=== PATIENT | male | born 1990 | race Two or more races ===

== ENCOUNTER 2020-05-03 00:59 | Emergency (ER) | payer SELFPAY ==
[~2020-05-03] VITALS: Ht 170.2 cm; Wt 77.1 kg
[2020-05-03] MEDS ORDERED: ONDANSETRON HCL/PF 4 MG/2 ML VIAL ONE (01:07)
--- NOTE | 2020-05-03 01:08 | NUR ---
PT AAOX1, BIBRA 87 FOR OVER DOSE. PT WAS ARRIVED WHILE EMS BAGGING HIM. PT WAS GIVEN [employer]. PT IN THE E.D. WAS PLACED ON 2L NC. SAT 98%. PT ONLY ABLE TO PROVIDE NAME. PT GIVEN 1L NS AND 4MG OF ZOFRAN. IV LINE ESTABLISHED ON L FOOT 20G. VSS. AWAITING MD FOR EVAL AND ORDERS.
[2020-05-03] MEDS ORDERED: IV NS 0.9% 1,000 ML IV ONE (01:30)
[2020-05-03] MEDS ORDERED: ONDANSETRON HCL/PF 4 MG/2 ML VIAL IV ONE (01:30)
[2020-05-03 01:40] LABS: BASOPHILS # (AUTO) 0.1 /CMM (0.0-0.2); BASOPHILS % (AUTO) 0.8 % (0.0-2.0); EOSINOPHILS % (AUTO) 0.2 % (0.0-6.0); HEMATOCRIT 43 % (39-51); LYMPHOCYTES # (AUTO) 0.5 /CMM (0.8-4.8); LYMPHOCYTES % (AUTO) 4.3 % (20.0-44.0); MEAN CORPUSCULAR HGB CONC 33 g/dl (31.0-36.0); MEAN CORPUSCULAR VOLUME 89 fL (80-96); MONOCYTES # (AUTO) 0.5 /CMM (0.1-1.30); MONOCYTES % (AUTO) 4.6 % (2.0-12.0); NEUTROPHILS # (AUTO) 10.8 /CMM (1.8-8.9); NEUTROPHILS % (AUTO) 90.1 % (43.0-81.0); PLATELET COUNT (AUTO) 184 /CMM (150-450); RED BLOOD CELL COUNT(AUTO) 4.79 MIL/uL (4.5-6.0)
--- NOTE | 2020-05-03 01:48 | NUR ---
PT AAOX4. DOES NOT WANT TO PROVIDE HIS NAME. AWARE.
--- NOTE | 2020-05-03 01:50 | NUR ---
Patient does not wish to proceed with medical care recommended by Dr. Delong. Patient given information related to possible complications, up to and including , which could occur as a result of leaving the hospital at this time. Patient verbalizes understanding of risks involved due to leaving against medical advice. Patient has signed AMA form.
[2020-05-03 01:57] VITALS: BP 128/75
[2020-05-03 02:12] LABS: ALANINE AMINOTRANSFERASE 59 U/L (12-78); ALBUMIN 3.7 g/dL (3.4-5.0); ALCOHOL, BLOOD 147 mg/dL (0-0); ALKALINE PHOSPHATASE 74 U/L (46-116); ASPARTATE AMINOTRANSFERASE 54 U/L (15-37); BILIRUBIN,DIRECT 0.1 mg/dL (0.0-0.2); BILIRUBIN,TOTAL 0.3 mg/dL (0.2-1.0); CALCIUM, SERUM 7.2 mg/dL (8.5-10.1); CARBON DIOXIDE 19 mmol/L (21-32); CHLORIDE 107 mmol/L (98-107); CREATININE 1.5 mg/dL (0.6-1.3); GLUCOSE 254 mg/dL (74-106); POTASSIUM 3.2 mmol/L (3.5-5.1); SODIUM SERUM 143 mmol/L (136-145); TOTAL PROTEIN, SERUM 7.5 g/dL (6.4-8.2); UREA NITROGEN, BLOOD 11 mg/dL (7-18)
--- NOTE | 2020-05-03 02:22 | NUR ---
unable to discharge due to meditec
[2020-05-03 04:04] LABS: ACETAMINOPHEN < 2 ug/ml (10-30)
== END 2020-05-03 02:22 | disposition left against medical advice (07) ==
LOC: ER 01:03
DX: T51.8X1A Toxic effect of other alcohols, accidental (unintentional), initial encounter (principal); Y92.89 Other specified places as the place of occurrence of the external cause
CPT/HCPCS: 36415; 80048; 80076; 80307; 80329; 85025; 96361; 96374; 99283; G0480; J2405; J7030